=== PATIENT | female | born 1995 | race Caucasian/White ===

== ENCOUNTER 2017-04-16 14:31 | Inpatient (IN) | payer BC ==
--- OUTSIDE RECORDS SUMMARY | 2017-04-16 14:35 | XMS REPORT | Continuity of Care Document ---
:1995 Author Organization [facility] ([facility]) Address [address] [place] [address] Phone [phone] Care Team Providers Name Role Phone Unavailable Primary Care Provider Unavailable Source Comments This disclosure is being made pursuant to the Care Everywhere program, applicable federal and state laws, and may not contain all informaitonavailable regarding this patient.[facility] ([facility]) Active Allergies and Adverse Reactions Not on File Current Medications Not on file Active Problems Not on file Social History Tobacco Use Types Packs/Day Years Used Date Never Assessed Plan of Care Health Maintenance Due Date Last Done Comments Hepatitis B Vaccine (1 of 3 - Primary Series) 1993 HPV Vaccine (1 of 3 - Female/Unknown 3 Dose Series) 2004 Tdap Vaccine 2004 Cervical Cancer Screening 2011 Lipid Disorder Screening 2011 MMR Vaccine 2011 Td Vaccine 2011 Varicella Vaccine (1 of 2 - Adult - No Evidence of 2011 Immunity) Influenza Vaccine: Seasonal (#1) 06/12/2016 Results from Last 3 Months Not on file
[2017-04-16] MEDS ORDERED: OXYTOCIN/DEXTROSE 5%-WATER 30 UNITS/500 ML BAG IV ONE (14:42)
[2017-04-16] MEDS ORDERED: ONDANSETRON HCL/PF 2 MG/ML VIAL IV PRN ×2 (14:42→17:34)
[2017-04-16] MEDS ORDERED: LIDOCAINE HCL 50 ML VIAL PERI PRN (14:42)
[2017-04-16 15:00] LABS: Hemoglobin 12.2 gm/dL (12.5-16.0); Mean Cell Volume 85.4 fl (78-100); Mean Corpuscular Hemoglobin 29.8 pg (27-31); Mean Corpuscular Hgb Conc 34.9 g/dl (32-36); Mean Platelet Volume 10.8 fl (6.0-9.5); Neutrophil % 79.5 % (42-75.0); Platelet Count 219 K/mm3 (150-450); White Blood Count 12.5 K/mm3 (4.0-10.5)
[2017-04-16] MEDS: DEXTROSE 5%-LACTATED RINGERS 1,000 ML IV PRN ×2 (15:05→18:40)
[2017-04-16 15:13] LABS: Random Urine Total Protein 54.7 mg/dL (0-12)
[2017-04-16 15:15] LABS: Albumin * 2.7 gm/dl (3.4-5.0); Anion Gap 15.1 mmol/L (6.8-13.8); BUN/Creatinine Ratio 19.6 (9.0-21.6); Bilirubin, Total 0.2 mg/dL (0.0-1.1); Ca. Corrected For Albumin 9.7 mg/dL (8.4-10.2); Carbon Dioxide 23.2 mmol/L (24-32.6); Potassium 4.3 mmol/L (3.4-4.6); Total Protein 6.8 gm/dL (6.2-8.2)
[2017-04-16] MEDS: RINGERS SOLUTION,LACTATED 1,000 ML IV ONE ×2 (15:53→17:28)
[2017-04-16] MEDS ORDERED: BUPIVACAINE HCL/0.9 % NACL/PF 250 ML EP PRN (17:34)
[2017-04-16] MEDS ORDERED: NALOXONE HCL 1 MG/1 ML SYRG IV PRN (17:34)
[2017-04-16] MEDS ORDERED: fentaNYL CITRATE/PF 50 MCG/ML AMPUL IT SCH (17:45)
--- NOTE | 2017-04-16 17:58 | PN ---
Progess Note - Interim Narrative: 04/16/17 17:50 Patient requesting epidural BPs intermittently in severe range. Pitocin at 6 mu/min. FHT: 150 baseline, reassuring Contractions q 2-3 min Cervix: 4/90/-2, AROM-clear, IUPC placed due to difficulty picking up contractions Impression: Intrauterine at 37 weeks induction of labor for gestational hypertension Plan: Requested epidural
--- NOTE | 2017-04-16 18:05 | OR ---
Anesthesia Procedure Note - Anesthesia Procedure Note Narrative: Vital Signs - Last Taken Temp 36.8 C 04/16/17 17:38 Pulse 91 04/16/17 17:38 Resp 18 04/16/17 17:38 BP 131/85 04/16/17 17:38 Pulse Ox 99 04/16/17 17:38 04/16/17 18:05 ANESTHESIA PROCEDURE NOTE Date of Procedure: 04/16/2017 Time of procedure: 1750. Performed by: Trey Bernal CRNA Mixer Diamond Powder: None. Preprocedure diagnosis: Active labor. Post procedure diagnosis: Same. Procedure: Insertion of labor epidural. Indications: The patient is a 21 -year-old prima para female in active labor requesting labor epidural for pain management. Findings: See below. Details of the procedure: The patient was placed in a sitting position. Back was prepped with DuraPrep. Patient was then draped in a sterile fashion. Lidocaine 1% was infiltrated to the skin and subcutaneous tissues at the level of the L3 4 interspace. The epidural space was identified using a 18-gauge Tuohy needle with erue-et-yxqaxcsdyb technique. 20 mcg fentanyl was given intrathecally using a 27 ga. spinal needle. Epidural catheter was inserted without difficulty. Negative test dose was elicited using 5 mL of 1.5% preservative-free lidocaine plus epinephrine 1 200,000. The epidural catheter was then taped and secured in place. EBL: Minimal. Fluids: N/A. Specimen: N/A. Post procedure condition: The patient tolerated the procedure well. No complications were noted. Thank you for this consultation. Gandhi CRNA
[2017-04-17] MEDS ORDERED: oxyCODONE HCL/ACETAMINOPHEN 1 TAB TABLET PO PRN (03:11)
[2017-04-17] MEDS ORDERED: HYDROCORTISONE 30 APPL TUBE TP PRN (03:11)
[2017-04-17] MEDS ORDERED: SENNOSIDES 8.6 MG TABLET PO PRN (03:11)
[2017-04-17] MEDS ORDERED: GLYCERIN/WITCH HAZEL LEAF 40 APPL BOX TP PRN (03:11)
[2017-04-17] MEDS ORDERED: BENZOCAINE/MENTHOL 81 SPRAY CAN TP PRN (03:11)
[2017-04-17] MEDS ORDERED: BISACODYL 10 MG SUPP.RECT RC PRN (03:11)
[2017-04-17] MEDS ORDERED: OXYTOCIN/DEXTROSE 5%-WATER 30 UNITS/500 ML BAG IV ONE (03:11)
--- NOTE | 2017-04-17 03:17 | OR ---
Operative Report - Dictated Report Narrative: Indication: Maternal exhaustion Pre Procedure Patient was counseled to the risk, benefits, and alternatives to operative vaginal delivery. All questions were answered. Patient consented to proceed with operative vaginal delivery. heart rate interpretation: Baseline 130, reassuring variability and pattern, EFW 2900 g, station +3, Position of head CHUCK, Anesthesia: epidural Cervix was completely dilated and effaced, maternal- size appropriate for application, bladder was emptied, flexion point identified, cup choice appropriate for application site, maternal tissue excluded from vacuum cup Procedure Total application time of the Kiwi Pro with Palm Pump was 30 seconds, maximum vacuum achieved was 500 mm Hg, number of pulls 1, number of involuntary releases 0, advancement in station with one easy pull, degree of rotation 0-45 Post Procedure Viable female born at 0252 on 04[birth year]2017 with Apgars 8 and 9, weighing 3069 g in CHUCK position with left hand presenting at chin. Cord gases not collected, Placenta spontaneously delivered, EBL less than 50 mL , Nuchal cord x 1 reduced on perineum, no injury, no shoulder dystocia, maternal first-degree vaginal laceration with no repair needed
[2017-04-17] MEDS: oxyCODONE HCL/ACETAMINOPHEN 1 TAB TABLET PO PRN ×4 (04:14→23:51)
[2017-04-17] MEDS: IBUPROFEN 800 MG TABLET PO PRN ×3 (04:15→20:05)
[2017-04-17] MEDS: DEXTROSE 5%-LACTATED RINGERS 1,000 ML IV PRN (04:18)
[2017-04-17] MEDS: DOCUSATE SODIUM 100 MG CAPSULE PO SCH ×2 (09:58→20:06)
[2017-04-17] MEDS: PRENATAL VIT#96/FERROUS FUM/FA 1 TAB TABLET PO SCH (09:58)
[2017-04-17] MEDS ORDERED: RHO(D) IMMUNE GLOBULIN 300 MCG DISP.SYRIN IM ONE (19:30)
--- NOTE | 2017-04-18 06:17 | PN ---
Subjective - Date and Time Seen Date: 04/18/17 Time: 06:16 Objective - Vitals Vitals: Last Vital Signs Temp 37.0 C 04/17/17 20:33 Pulse 93 04/17/17 23:57 Resp 16 04/17/17 23:57 BP 133/80 04/17/17 23:57 Pulse Ox 98 04/17/17 23:57 Patient denies complaints. Lochia wnl Abdomen - soft, nontender Uterus - firm, at umbilicus - 1 No calf tenderness Impression: day #1 - s/p spontaneous vaginal delivery. Gestational hypertension-resolved Plan: Continue routine care Cauti Physician Documentation - Urinary Catheter Management Urethral (Gutierrez) Date of Insertion: 04/16/17 Time of Insertion: 19:12
[2017-04-18] MEDS: oxyCODONE HCL/ACETAMINOPHEN 1 TAB TABLET PO PRN ×2 (06:40→13:17)
[2017-04-18] MEDS: IBUPROFEN 800 MG TABLET PO PRN ×3 (06:40→19:38)
[2017-04-18] MEDS: PRENATAL VIT#96/FERROUS FUM/FA 1 TAB TABLET PO SCH (08:32)
[2017-04-18] MEDS: DOCUSATE SODIUM 100 MG CAPSULE PO SCH ×2 (08:32→20:38)
[2017-04-19] MEDS: IBUPROFEN 800 MG TABLET PO PRN ×4 (01:22→22:40)
[2017-04-19] MEDS: DOCUSATE SODIUM 100 MG CAPSULE PO SCH ×2 (08:43→20:11)
[2017-04-19] MEDS: PRENATAL VIT#96/FERROUS FUM/FA 1 TAB TABLET PO SCH (08:43)
--- NOTE | 2017-04-19 08:46 | PN ---
Subjective - Date and Time Seen Date: 04/19/17 Time: 08:46 Objective - Vitals Vitals: Last Vital Signs Temp 36.6 C 04/19/17 07:00 Pulse 75 04/19/17 07:00 Resp 18 04/19/17 07:00 BP 134/85 04/19/17 07:00 Pulse Ox 98 04/19/17 07:00 Patient denies complaints. Lochia wnl Abdomen - soft, nontender Uterus - firm, at umbilicus - 2 No calf tenderness Impression: day #2 - s/p spontaneous vaginal delivery. Gestational hypertension stable. Plan: Routine discharge instructions. Preeclampsia precautions. Cauti Physician Documentation - Urinary Catheter Management Urethral (Gutierrez) Date of Insertion: 04/16/17 Time of Insertion: 19:12
[2017-04-19] MEDS: oxyCODONE HCL/ACETAMINOPHEN 1 TAB TABLET PO PRN ×2 (16:15→22:40)
[2017-04-19 22:44] VITALS: BP 131/88
== END 2017-04-19 22:54 | disposition home or self-care (01) | DRG 775 ==
LOC: OB 14:31 → MS 04-18 14:56
PROVIDERS: ADMIT Obstetrics & Gynecology; ATTEND Obstetrics & Gynecology
PROC: 10D07Z6 Extraction of Products of Conception, Vacuum, Via Natural or Artificial Opening (ICD-10-PCS; principal; 2017-04-17)
PROC: 4A1HXCZ Monitoring of Products of Conception, Cardiac Rate, External Approach (ICD-10-PCS; 2017-04-17)
PROC: 10907ZC Drainage of Amniotic Fluid, Therapeutic from Products of Conception, Via Natural or Artificial Opening (ICD-10-PCS; 2017-04-17)
PROC: 3E0S3CZ (ICD-10-PCS; 2017-04-17)
DX: O13.4 Gestational [pregnancy-induced] hypertension without significant proteinuria, complicating childbirth (principal); O69.81X0 Labor and delivery complicated by cord around neck, without compression, not applicable or unspecified; O75.81 Maternal exhaustion complicating labor and delivery; O70.0 First degree perineal laceration during delivery; Z3A.37 37 weeks gestation of pregnancy; Z37.0 Single live birth
CPT/HCPCS: 36415; 59025; 80053; 82570; 84156; 85025; J2405; J2790

== ENCOUNTER 2019-02-03 14:14 | Inpatient (IN) ==
[2019-02-03] MEDS ORDERED: OXYTOCIN/DEXTROSE 5%-WATER 30 UNITS/500 ML BAG IV ONE ×2 (14:26→20:31)
[2019-02-03] MEDS ORDERED: RINGER'S SOLUTION,LACTATED 1,000 ML IV PRN (14:26)
[2019-02-03] MEDS ORDERED: RINGER'S SOLUTION,LACTATED 1,000 ML IV ONE (14:26)
--- NOTE | 2019-02-03 15:27 | HP ---
Chief Complaint - Chief Complaint Date of Service: 02/03/19 Time of Service: 15:22 Chief Complaint: contractions History of Present Illness: 23 yo at 37 2/7 wks presents to L&D from office in labor. This complicated by obesity, h/o GHTN, GDM - diet controlled. Rh negative Rubella immune GBS negative Medical History (Last Reviewed 02/03/19 @ 15:24 by Vince Morales DO) Gestational diabetes mellitus (GDM) (Acute) Onset Date: ~12/16/18 History of gestational hypertension (Chronic) Abnormal Pap smear of cervix Onset Date: ~2015 ASC-US +HR HPV BMI 36.0-36.9,adult Onset Date: 09/25/16 GERD (gastroesophageal reflux disease) Onset Date: Unknown HPV (human papilloma virus) infection Onset Date: 09/2016 Hypertension Onset Date: ~2015 No medications Heart palpitations Onset Date: ~2012 Abdominal pain Onset Date: 03/21/13 RLQ Chlamydia trachomatis infection during Onset Date: 09/25/16 Gestational hypertension Onset Date: 09/2016 Otitis media Onset Date: Unknown Pharyngitis, acute Onset Date: Unknown Urinary tract infection Onset Date: 03/21/13 Surgical History: Surgical History (Last Reviewed 02/03/19 @ 15:24 by Vince Morales DO) History of tonsillectomy and adenoidectomy Onset Date: Unknown Hx of appendectomy Onset Date: 1999 Family History: Family History (Last Reviewed 02/03/19 @ 15:24 by Vince Morales DO) Brother History of open heart surgery, Onset Age: 5 Father Heart disease Diabetes Type II Mother Heart disease Breast lump benign Grandmother Heart disease Maternal Social History: Preferred Language Turkish Smoking Status Never smoker Abuse History No History of abuse Psych History No pertinent hx (Last Updated 02/03/19 @ 15:21 by Vince Morales DO) No Social History Section defined Review Of Systems (GEN) - Review of Systems Generalized/Overall Review: Present: No Symptoms Reported EENTM: Present: No Symptoms Reported Respiratory: Present: No Symptoms Reported Cardiac: Present: No Symptoms Reported Abdominal: Present: Other - contractions Genitourinary: Present: Other - vaginal pressure Musculoskeletal: Present: No Symptoms Reported Neurological: Present: No Symptoms Reported Skin: Present: No Symptoms Reported Immunizations: IMMUNIZATION HX Immunizations Up to Date Yes History of Influenza Vaccine No Hx Pneumococcal Vaccination No Allergies/Adverse Reactions: Allergies Allergy/AdvReac Type Severity Reaction Status Date / Time pertussis vaccine,adsorbed Allergy Unknown Verified 02/03/19 13:24 [Pertussis Vaccine,Adsorbed] codeine [Codeine] AdvReac Intermediate dizziness Verified 02/03/19 13:24 Home Medications: HOME MEDICATIONS Vits96/Iron Fum/Folic [ S] 1 tab PO DAILY 04/16/17 [Last Taken 02/03/19 09:00] acetone (urine) test strips See Dose Instructions .ROUTE .MEDSUPPLY #100 ea 12/18/18 [Last Taken Unknown] blood sugar diagnostic strips See Dose Instructions .ROUTE .MEDSUPPLY #100 ea 12/18/18 [Last Taken Unknown] blood-glucose meter kit See Dose Instructions .ROUTE .MEDSUPPLY #1 ea 12/18/18 [Last Taken Unknown] lancets See Dose Instructions .ROUTE .MEDSUPPLY #100 ea 12/18/18 [Last Taken Unknown] Exam - Exam Vital Signs: Vital Signs - Last Taken Temp 36.9 C 02/03/19 15:19 Pulse 90 02/03/19 15:19 Resp 18 02/03/19 15:19 BP 138/98 H 02/03/19 15:19 Pulse Ox 98 02/03/19 15:19 Constitutional: Present: Alert, Oriented x3, Cooperative, No distress ENT Exam: Present: hearing grossly normal Breasts: Present: Exam deferred Respiratory: Present: lungs clear, no respiratory distress Cardiovascular/Chest: Present: normal peripheral pulses, regular rate, rhythm, no edema Abdomen: Present: soft, nontender, no rebound tenderness, other - gravid Extremity: Present: non-tender, no pedal edema, no calf tenderness Skin Exam: Present: normal color, warm/dry, no cyanosis Lymphatic: Present: no adenopathy Neurologic: Present: alert, normal mood/affect, oriented x 3 Appearance: Present: appropriate appearance, appropriate insight Eye contact: Present: cooperative, good eye contact Thoughts: Present: normal thought pattern Diagnostic Studies: NST reactive. UDS pending Assessment/Plan - Assessment/Plan (1) Labor established Assessment: Admit for routine management of labor with accuchecks q2h. If BPs remain elevated, will get CBC, CMP, Pr/Cr ratio. Problem: Acute (2) Gestational diabetes mellitus (GDM) Problem: Acute Qualifiers: Gestational diabetes mellitus control: diet-controlled Trimester: third trimester Qualified Code(s): O24.410 - Gestational diabetes mellitus in , diet controlled (3) History of gestational hypertension Problem: Chronic
[2019-02-03] MEDS ORDERED: NALOXONE HCL 1 MG/1 ML SYRG IV PRN (15:38)
[2019-02-03] MEDS ORDERED: BUPIVACAINE HCL/0.9 % NACL/PF 250 ML EP PRN (15:38)
[2019-02-03] MEDS ORDERED: ONDANSETRON HCL/PF 2 MG/ML VIAL IV PRN (15:38)
[2019-02-03] MEDS ORDERED: fentaNYL CITRATE/PF 50 MCG/ML AMPUL IT SCH (15:45)
[2019-02-03] MEDS ORDERED: LIDOCAINE HCL/EPINEPHRINE 20 ML VIAL ONE (15:57)
[2019-02-03] MEDS ORDERED: LIDOCAINE HCL 50 ML VIAL ONE (16:00)
[2019-02-03] MEDS ORDERED: LIDOCAINE HCL 50 ML VIAL IJ ONE (16:04)
[2019-02-03 16:46] LABS: Hematocrit 34.3 % (37.0-47.0); Hemoglobin 11.1 gm/dL (12.5-16.0); Mean Cell Volume 88.4 fl (78-100); Mean Corpuscular Hemoglobin 28.6 pg (27-31); Mean Corpuscular Hgb Conc 32.4 g/dl (32-36); Mean Platelet Volume 10.8 fl (8-12.5); Neutrophil # 11.3 K/mm3 (1.3-6.0); Neutrophil % 78.5 % (42-75.0); Platelet Count 198 K/mm3 (150-450); Red Blood Count 3.88 M/mm3 (4.2-5.4); Red Cell Distribution Width 14.3 % (11.5-14.0); White Blood Count 14.4 K/mm3 (4.0-10.5)
[2019-02-03 16:49] LABS: Cocaine Ur Negative (NEGATIVE); Urine Barbiturate Negative (NEGATIVE); Urine Benzodiazepines Negative (NEGATIVE); Urine Opiates Negative (NEGATIVE); Urine PCP Negative (NEGATIVE); Urine THC Negative (NEGATIVE)
--- NOTE | 2019-02-03 17:01 | PN ---
Progess Note - Interim Date: 02/03/19 Time: 16:56 Narrative: 02/03/19 16:56 Patient comfortable with epidural Vital signs stable. BS 78 FHT: 145 baseline, reassuring Contractions q 2-3 min Cervix: 5-6/90/-2, AROM-clear Impression: Intrauterine at 37 2/7 weeks in labor. Gestational diabetes-stable Plan: Continue present plan
[2019-02-03 17:04] LABS: Albumin * 2.7 gm/dl (3.4-5.0); Anion Gap 17.1 mmol/L (6.8-13.8); BUN/Creatinine Ratio 15.6 (9.0-21.6); Bilirubin, Total 0.5 mg/dL (0.0-1.1); Ca. Corrected For Albumin 9.9 mg/dL (8.4-10.2); Calcium * 9.2 mg/dL (7.9-10.9); Carbon Dioxide 21.6 mmol/L (24-32.6); Potassium 3.7 mmol/L (3.4-4.6); Total Protein 5.9 gm/dL (6.2-8.2)
--- NOTE | 2019-02-03 17:07 | ANES ---
Anesthesia Pre Procedure Eval Vitals/Labs: Last Vital Signs Temp 36.6 C 02/03/19 16:15 Pulse 81 02/03/19 16:15 Resp 20 02/03/19 16:15 BP 132/81 02/03/19 16:15 Pulse Ox 100 02/03/19 16:15 HOME MEDICATIONS RX: Vits96/Iron Fum/Folic [ S] 1 tab PO DAILY 04/16/17 [Last Taken 02/03/19 09:00] acetone (urine) test strips See Dose Instructions .ROUTE .MEDSUPPLY #100 ea 12/18/18 [Last Taken Unknown] blood sugar diagnostic strips See Dose Instructions .ROUTE .MEDSUPPLY #100 ea [Last Taken Unknown] blood-glucose meter kit See Dose Instructions .ROUTE .MEDSUPPLY #1 ea 12/18/18 [Last Taken Unknown] lancets See Dose Instructions .ROUTE .MEDSUPPLY #100 ea 12/18/18 [Last Taken Unknown] Allergies/Adverse Reactions: Allergies Allergy/AdvReac Type Severity Reaction Status Date / Time pertussis vaccine,adsorbed Allergy Unknown Verified 02/03/19 13:24 [Pertussis Vaccine,Adsorbed] codeine [Codeine] AdvReac Intermediate dizziness Verified 02/03/19 13:24 - Planned Procedure Planned Procedure: ACTIVE LABOR Medication List Reviewed:: Yes Allergies Verified: Yes Medical History (Last Reviewed 02/03/19 @ 17:07 by Ladarius Bernal CRNA) Gestational diabetes mellitus (GDM) (Acute) Onset Date: ~12/16/18 History of gestational hypertension (Chronic) Abnormal Pap smear of cervix Onset Date: ~2015 ASC-US +HR HPV BMI 36.0-36.9,adult Onset Date: 09/25/16 GERD (gastroesophageal reflux disease) Onset Date: Unknown HPV (human papilloma virus) infection Onset Date: 09/2016 Hypertension Onset Date: ~2015 No medications Heart palpitations Onset Date: ~2012 Abdominal pain Onset Date: 03/21/13 RLQ Chlamydia trachomatis infection during Onset Date: 09/25/16 Gestational hypertension Onset Date: 09/2016 Otitis media Onset Date: Unknown Pharyngitis, acute Onset Date: Unknown Urinary tract infection Onset Date: 03/21/13 Surgical History (Last Reviewed 02/03/19 @ 17:07 by Ladarius Bernal CRNA) History of tonsillectomy and adenoidectomy Onset Date: Unknown Hx of appendectomy Onset Date: 1999 Family History (Last Reviewed 02/03/19 @ 17:07 by Ladarius Bernal CRNA) Brother History of open heart surgery, Onset Age: 5 Father Heart disease Diabetes Type II Mother Heart disease Breast lump benign Grandmother Heart disease Maternal - Family Anesthesia History Family History:: no untoward family reactions to anesthesia - Airway/Neck/Teeth Within Normal Limits:: Yes Teeth Condition: intact Neck Exam: full range of motion Mallampatti Score: 2 Thyromental (T-M) distance: > 6 cm Mandibulo Hyoid distance: > 3 cm - Respiratory Respiratory Physical: lungs clear Smoking Status: Never smoker Sleep Apnea currently treated: No Sleep Apnea by current assessment: No - Cardiovascular Cardiac History: hypertension Tolerate Activity: Fair Heart Sounds: S1 & S2, Regular - Anesthesia Assessment and Plan ASA Class: PS, II, E Anesthesia Type Plan: Epidural Planned difficult intubation/equipment available: No
--- NOTE | 2019-02-03 17:08 | ANES ---
Post Anesthesia Assessment - Vital Signs Vitals: Last Vital Signs Temp 36.6 C 02/03/19 16:15 Pulse 81 02/03/19 16:15 Resp 20 02/03/19 16:15 BP 132/81 02/03/19 16:15 Pulse Ox 100 02/03/19 16:15 Airway Patency: Normal - Mental Status Level Of Consciousness: Awake - Pain Level Pain Score: 2 - N/V Assessment Nausea/Vomiting Presence: None Dehydration:: No
--- NOTE | 2019-02-03 17:08 | ANES ---
Post Anesthesia Discharge - Transfer of Care Transfer of Care handoff given to nurse: Yes - Anesthesia Post Op Note Anesthesia Post Op Note: Care transferred to OB RN
--- NOTE | 2019-02-03 17:10 | ANES ---
Anesthesia Procedure Note Procedure Note: ANESTHESIA PROCEDURE NOTE Date of Procedure: 02/03/2019 Time of procedure: 1545. Performed by: Trey Bernal CRNA Nursing Educator: None. Preprocedure diagnosis: Active labor. Post procedure diagnosis: Same. Procedure: Insertion of labor epidural. Indications: The patient is a 23-year-old multigravid female in active labor requesting labor epidural for pain management. Findings: See below. Details of the procedure: The patient was placed in a sitting position. Back was prepped with DuraPrep. Patient was then draped in a sterile fashion. Lidocaine 1% was infiltrated to the skin and subcutaneous tissues at the level of the L3 4 interspace. The epidural space was identified using a 18-gauge Tuohy needle with mled-si-osrevhhddb technique. 20 mcg fentanyl was given intrathecally using a 27 ga. spinal needle. Epidural catheter was inserted without difficulty. Negative test dose was elicited using 5 mL of 1.5% preservative-free lidocaine plus epinephrine 1 200,000. The epidural catheter was then taped and secured in place. EBL: Minimal. Fluids: N/A. Specimen: N/A. Post procedure condition: The patient tolerated the procedure well. No complications were noted. Thank you for this consultation. Gandhi CRNA
[2019-02-03] MEDS ORDERED: NALOXONE HCL 0.4 MG/ML VIAL IV STA (17:24)
[2019-02-03] MEDS ORDERED: NALOXONE HCL 1 MG/1 ML SYRG IV STA (17:41)
[2019-02-03] MEDS ORDERED: oxyCODONE HCL/ACETAMINOPHEN 1 TAB TABLET PO PRN (20:31)
[2019-02-03] MEDS ORDERED: GLYCERIN/WITCH HAZEL LEAF 40 APPL BOX TP PRN (20:31)
[2019-02-03] MEDS ORDERED: BISACODYL 10 MG SUPP.RECT RC PRN (20:31)
[2019-02-03] MEDS ORDERED: SENNOSIDES 8.6 MG TABLET PO PRN (20:31)
[2019-02-03] MEDS ORDERED: BENZOCAINE/MENTHOL 81 SPRAY CAN TP PRN (20:31)
[2019-02-03] MEDS ORDERED: HYDROCORTISONE 30 APPL TUBE TP PRN (20:31)
--- NOTE | 2019-02-03 20:37 | OR ---
Operative Report - Dictated Report Narrative: Spontaneous vaginal delivery of viable female at 2000 on 02/03/2019 with Apgars 7 and 8, weighing 3028 g in CHUCK position with double foot cord 1, crying on mother's abdomen. Cord clamping delayed approximately 1 minute Placenta delivered complete, intact, with three vessel cord Estimated blood loss: less than 50 ml Anesthesia: epidural Lacerations: First-degree vaginal with no repair needed History for MU Definition: * The number of deliveries resulting in a live the patient experienced prior to current hospitalization * The previous delivery of live twins or any live multiple gestation is considered one live event. *If primagravida or nulliparous is documented select zero for the number of previous live births. Live Events: 1
[2019-02-03] MEDS: IBUPROFEN 800 MG TABLET PO PRN (21:07)
[2019-02-03] MEDS: DOCUSATE SODIUM 100 MG CAPSULE PO SCH (22:21)
[2019-02-03] MEDS: oxyCODONE HCL/ACETAMINOPHEN 1 TAB TABLET PO PRN (22:21)
[2019-02-04] MEDS: IBUPROFEN 800 MG TABLET PO PRN ×4 (02:13→23:12)
[2019-02-04] MEDS: oxyCODONE HCL/ACETAMINOPHEN 1 TAB TABLET PO PRN ×6 (02:13→23:13)
[2019-02-04] MEDS: DOCUSATE SODIUM 100 MG CAPSULE PO SCH ×3 (08:33→21:02)
[2019-02-04] MEDS ORDERED: RHO(D) IMMUNE GLOBULIN 1,500 UNIT SYRINGE IM ONE ×2 (09:00→18:00)
--- NOTE | 2019-02-04 12:59 | PN ---
Subjective - Date and Time Seen Date: 02/04/19 Time: 12:58 Objective - Vitals Vitals: Last Vital Signs Temp 36.4 C 02/04/19 07:40 Pulse 81 02/04/19 07:40 Resp 18 02/04/19 07:40 BP 131/85 02/04/19 07:40 Pulse Ox 98 02/04/19 07:40 Patient denies complaints. Lochia wnl Abdomen - soft, nontender Uterus - firm, at umbilicus - 1 No calf tenderness Impression: day #1 - s/p spontaneous vaginal delivery. Gestational diabetes-resolved Plan: Continue routine care. Screen for diabetes again at visit. - Abnormal Lab Findings Abnormal Lab Findings: Abnormal Lab Results 02/03/19 02/03/19 02/03/19 Range/Units 15:28 16:40 16:40 WBC 14.4 H (4.0-10.5) K/mm3 RBC 3.88 L (4.2-5.4) M/mm3 Hgb 11.1 L (12.5-16.0) gm/dL Hct 34.3 L (37.0-47.0) % RDW 14.3 H (11.5-14.0) % Immature Gran % (Auto) 2.30 H (0.001-0.429) % Immature Gran # (Auto) 0.33 H (0.000-0.0310) K/mm3 Neutrophils % 78.5 H (42-75.0) % Lymphocytes % 12.1 L (20-51) % Neutrophils # 11.3 H (1.3-6.0) K/mm3 Carbon Dioxide 21.6 L (24-32.6) mmol/L Anion Gap 17.1 H (6.8-13.8) mmol/L Est GFR (Non-Af Amer) 180 H D (60-130) mL/min ALT 11 L (19-67) U/L Total Protein 5.9 L (6.2-8.2) gm/dL Albumin 2.7 L (3.4-5.0) gm/dl Ur Random Creatinine 59.5 L (60-200) mg/dL U Random Total Protein 16.0 H (0-12) mg/dL U [place] Prot/Creat Ratio 269 H (0-199) mg/gm Cauti Physician Documentation - Urinary Catheter Management Urethral (Gutierrez) Date of Insertion: 02/03/19 Time of Insertion: 17:57 Assessment/Plan - Problems/Diagnosis (1) Labor established Problem: Acute (2) Gestational diabetes mellitus (GDM) Problem: Acute Qualifiers: Gestational diabetes mellitus control: diet-controlled Trimester: third trimester Qualified Code(s): O24.410 - Gestational diabetes mellitus in , diet controlled (3) History of gestational hypertension Problem: Chronic
[2019-02-05] MEDS: IBUPROFEN 800 MG TABLET PO PRN ×3 (07:26→23:44)
[2019-02-05] MEDS: oxyCODONE HCL/ACETAMINOPHEN 1 TAB TABLET PO PRN ×3 (07:26→21:52)
[2019-02-05] MEDS: DOCUSATE SODIUM 100 MG CAPSULE PO SCH ×2 (08:09→21:53)
--- NOTE | 2019-02-05 09:28 | PN ---
Subjective - Date and Time Seen Date: 02/05/19 Time: 09:27 Objective - Vitals Vitals: Last Vital Signs Temp 36.6 C 02/05/19 08:13 Pulse 81 02/05/19 08:13 Resp 16 02/05/19 08:13 BP 141/98 H 02/05/19 08:13 Pulse Ox 99 02/05/19 08:13 Patient denies complaints. Lochia wnl Abdomen - soft, nontender Uterus - firm, at umbilicus - 2 No calf tenderness Impression: day #2 - s/p spontaneous vaginal delivery. Occasional isolated elevated blood pressure with history of gestational hypertension. Plan: Routine discharge instructions. Preeclampsia precautions. Late discharge due to baby being worked up for infection - board for baby. Cauti Physician Documentation - Urinary Catheter Management Urethral (Gutierrez) Date of Insertion: 02/03/19 Time of Insertion: 17:57 Assessment/Plan - Problems/Diagnosis (1) Labor established Problem: Acute (2) Gestational diabetes mellitus (GDM) Problem: Acute Qualifiers: Gestational diabetes mellitus control: diet-controlled Trimester: third trimester Qualified Code(s): O24.410 - Gestational diabetes mellitus in , diet controlled (3) History of gestational hypertension Problem: Chronic
[2019-02-05 19:19] VITALS: BP 116/85
== END 2019-02-05 23:56 | disposition home or self-care (01) | DRG 806 ==
LOC: OB 14:14 → MS 02-05 20:20
PROVIDERS: ADMIT Obstetrics & Gynecology; ATTEND Obstetrics & Gynecology
CPT/HCPCS: 36415; 59025; 80053; 80307; 82570; 84155; 84156; 85025; 85460; 88307; J2790